=== PATIENT | male | born 1995 | race Caucasian/White ===

== ENCOUNTER 2020-12-07 21:23 | Emergency (ER) | payer OTHER ==
[~2020-12-07] VITALS: Ht 188 cm; Wt 85.0 kg
[2020-12-07 22:02] LABS: MICROSCOPIC NOT IND
[2020-12-07 22:15] LABS: ALANINE AMINOTRANSFERASE 23 U/L (12-78); ALBUMIN 4.4 g/dL (3.4-5.0); ANION GAP 11 mmol/L (5-15); CALCIUM 9.3 mg/dL (8.5-10.1); CHLORIDE 104 mmol/L (98-107); CREATININE 1.35 mg/dL (0.7-1.3)
[2020-12-07 22:16] LABS: MEAN CORPUSCULAR HEMOGLOBIN 30.2 pg (27.5-34.5); MEAN PLATELET VOLUME 9.3 fL (7.4-10.4); PLATELET COUNT 270 x10^3/uL (130-400); RED BLOOD COUNT 5.42 x10^6/uL (4.38-5.82); RED CELL DISTRIBUTION WIDTH 12.7 % (9.4-14.8)
[2020-12-07 22:17] LABS: ALKALINE PHOSPHATASE 59 U/L (45-117); BILIRUBIN,TOTAL 1.7 mg/dL (0.2-1.0)
[2020-12-07 22:59] LABS: BAND#(MANUAL) 0.43 x10^3/uL; BANDS%(MANUAL) 2 % (0-7); LYMPH#(MANUAL) 1.93 x10^3/uL (1-3.4); LYMPHS% (MANUAL) 9 % (22-44); MONOS#(MANUAL) 1.71 x10^3/uL (0.3-2.7); MONOS% (MANUAL) 8 % (2-9); SEG#(MANUAL) 17.33 x10^3/uL (1.8-6.8); SEGS% (MANUAL) 81 % (42-75)
[2020-12-07 23:00] LABS: <PLATELET ESTIMATE> ADEQUATE; <RBC MORPHOLOGY> NORMAL; LARGE PLATELETS 1+
--- NOTE | 2020-12-07 23:41 | NUR ---
pt presents to ed with abd pain since 1600 today. pt threw up in waiting room. pt stated the pain feels like cramping in lower quadrant. pt in gown, on gurney, and placed on continuous monitoring.
[2020-12-08] MEDS ORDERED: ONDANSETRON 2MG/ML, 2ML IVPush ONE
[2020-12-08] MEDS ORDERED: MORPHINE SULFATE 4 MG/ML, 1ML IVPush PRN
[2020-12-08] MEDS ORDERED: SODIUM CHLORIDE 0.9% 1,000ML IVBOLUS ONE
[2020-12-08] MEDS ORDERED: SODIUM CHLORIDE FLUSH 10ML SYR IVF ONE
--- NOTE | 2020-12-08 00:11 | NUR ---
task rn: pt to CT
--- NOTE | 2020-12-08 00:29 | NUR ---
PT RETURNED FROM CT. DECLINED PAIN AND NAUSEA MEDS AT THIS TIME.
[2020-12-08] MEDS ORDERED: PLEASE ENTER ALLERGIES MC SCH (00:30)
--- NOTE | 2020-12-08 00:58 | NUR ---
PT AMBULATORY WITH STEADY GAIT TO BATHROOM. PT DENIES ANY ADDITIONAL NEEDS AT THIS TIME.
--- NOTE | 2020-12-08 01:30 | NUR ---
PT RESTING COMFORTABLY ON GURNEY, DENIES NEEDS AT THIS TIME.
[2020-12-08 02:51] VITALS: BP 120/80
--- NOTE | 2020-12-08 02:51 | NUR ---
Patient given discharge instructions and they have confirmed that they understand the instructions. Patient ambulatory with steady gait.
[2020-12-08] MEDS ORDERED: OMNIPAQUE 350 MG/ML, 100ML BOTTLE ONE (12:15)
== END 2020-12-08 02:53 | disposition home or self-care (01) ==
LOC: ED 12-08 02:00
DX: R10.30 Lower abdominal pain, unspecified (principal); R11.2 Nausea with vomiting, unspecified; R10.84 Generalized abdominal pain; D72.829 Elevated white blood cell count, unspecified
CPT/HCPCS: 36415; 74177; 80053; 81003; 83690; 85025; 96360; 96361; 99285; J7030; Q9967